=== PATIENT | female | born 1995 | race Caucasian/White ===

== ENCOUNTER 2017-03-26 00:59 | Emergency (ER) | payer BC ==
[~2017-03-26] VITALS: Ht 154.9 cm; Wt 65.9 kg
[~2017-03-26 00:59] MED LIST: BIRTH CONTROL; CIPRO 500MG TA500 MG PO; FLAGYL500 MG PO; ZOFRAN ODT4 MG PO
[2017-03-26 01:47] LABS: BASO # 0.1 (0.0-0.2); BASO % 0.7 % (0.0-2.0); EOS # 0.4 (0.0-0.7); EOS % 4.3 % (0-4.0); GRAN # 3.7 (1.4-6.5); GRAN % 38.2 % (42.2-75.2); LYMPH # 4.8 (1.2-3.4); LYMPH % 49.7 % (20.0-51.0); MEAN CELL VOLUME 79 fl (80.0-100.0); MEAN CORPUSCULAR HEMOGLOBIN 28 pg (27.0-31.0); MEAN CORPUSCULAR HGB CONC 35 g/dl (33.0-37.0); MEAN PLATELET VOLUME 11.1 fl (7.4-10.4); MONO # 0.7 (0.1-0.6); MONO % 6.8 % (1.7-9.3); PLATELET COUNT 280 K/mm3 (130-400); RED BLOOD COUNT 5.04 M/mm3 (4.10-5.30); REDCELL DISTRIBUTION WIDTH-CV 12.3 % (11.5-14.5)
[2017-03-26 01:56] LABS: ALBUMIN 4.8 gm/dL (3.5-5.0); BILIRUBIN,TOTAL 0.5 mg/dL (0.0-1.0); CALCIUM 9.7 mg/dL (8.4-10.2); CREATININE, serum 0.76 mg/dL (0.52-1.25); POTASSIUM 3.6 mmol/L (3.4-5.0); TOTAL PROTEIN 8.6 gm/dL (6.4-8.2)
[2017-03-26 02:13] LABS: COLLECTION METHOD CLEAN CATCH
[2017-03-26 02:19] LABS: PH 5 (5-8); SQUAMOUS EPITHELIAL 0-2 /hpf; URINE APPEARANCE Clear; URINE BACTERIA None Seen /hpf; URINE BILIRUBIN Negative (NEGATIVE); URINE BLOOD Negative (NEGATIVE); URINE COLOR Yellow; URINE GLUCOSE Negative (NEGATIVE); URINE KETONE Negative (NEGATIVE); URINE LEUKOCYTE ESTERASE Negative (NEGATIVE); URINE NITRATE Negative (NEGATIVE); URINE PROTEIN(semi-quant) Negative (NEGATIVE); URINE RBC 0-2 /hpf; URINE UROBILINOGEN Negative (NEGATIVE)
[2017-03-26 04:35] VITALS: BP 119/78; PULSE 70; TEMP 98.2
== END 2017-03-26 04:46 | disposition home or self-care (01) ==
LOC: COL.ER 00:59
PROVIDERS: Emergency Medicine
DX: K59.00 Constipation, unspecified (principal)
CPT/HCPCS: J2270; J2405; J7030; Q9967

== ENCOUNTER 2022-11-05 12:37 | Inpatient (IN) | payer BC, MEDICAID ==
[~2022-11-05] VITALS: Ht 157.5 cm; Wt 102.3 kg
[2022-11-09] VITALS (17 sets, daily range): BP systolic 102–126; BP diastolic 42–84; PULSE 66–88; TEMP 98–98.3
--- NOTE | 2022-11-09 09:15 | NUR ---
PT ARRIVES AMBULATORY TO UNIT FOR SCHEDULED REPEAT CSECTION. REPORTS VAGINAL DISCHARGE/FLUID SINCE 1600 YESTERDAY, NONE TODAY. AND INTERMITTENT CONTRACTIONS, SHE IS ABLE TO BREATHE AND TALK THROUGH. REPORTS POSITIVE MOVEMENT. STATES SHE WAS TRAN[facility] [place] [facility] DUE TO A "UTERINE ABRASION/SCAR TISSUE THAT WILL NEED REPAIR DURING THIS CSECTION." NOTIFIED, NO NEW ORDERS AT THIS TIME. NO NEED FOR AMNITEST OR SVE PER , WE WILL SHORTLY BE WALKING PT BACK FOR DELIVERY. GBS-. CATEGORY 1 EFM TRACING UPON ARRIVAL.
[2022-11-09] MEDS ORDERED: PRENATAL (09:21)
[2022-11-09 09:45] LABS: HEMATOCRIT 39.7 % (37.0-47.0); HEMOGLOBIN 13.6 g/dl (12.5-16.0); MEAN CELL VOLUME 81 fl (80.0-100.0); MEAN CORPUSCULAR HEMOGLOBIN 28 pg (27-31); MEAN CORPUSCULAR HGB CONC 34 g/dl (33.0-37.0); MEAN PLATELET VOLUME 10.3 fl (7.4-10.4); PLATELET COUNT 216 K/mm3 (130-400); RED BLOOD COUNT 4.92 M/mm3 (4.10-5.30); REDCELL DISTRIBUTION WIDTH-CV 12.9 % (11.5-14.5)
[2022-11-09 10:07] LABS: LYMPHOCYTE 24 % (20.0-51.0); NEUTROPHILS 70 % (42.0-75.2)
[2022-11-09 10:09] LABS: PLATELET ESTIMATE NORMAL (NORMAL); TOXIC GRANULATION PRESENT
[2022-11-09] MEDS ORDERED: PERCOCET 325 MG1 TA2 PO (10:11)
[2022-11-09] MEDS ORDERED: MOTRIN 800800 MG/TAB PO (10:11)
--- NOTE | 2022-11-09 10:56 | NUR ---
1022: PT TO OR FOR SCHEDULED REPEAT SECTION. DAXA MARIE AT BEDSIDE FOR SPINAL ANESTHESIA. PT TOLERATING PROCEDURE WELL. PRESENT AND SUPPORTIVE. 1053: AROM, CLEAR FLUID PER 1054: VACUUM PLACED ON INFANTS HEAD PER . 35CM PRESSURE APPLIED. TRACTION PERFORMED, POP OFF X1. NO FURTHER VACUUM USE. AND HAVING DIFFICULTY DELIVERING . 1056: CSECTION DELIVERY OF VIABLE MALE INFANT AT THIS TIME PER . NO CRY NOTED AT DELIVERY, BLUE IN COLOR AND TAKEN TO WARMER. CARE OF ASSUMED BY DIANNE JACOBSEN AND ASSISTANCE REQUESTED AND OFFERED BY CANDYRN AND DIANNE CAMPBRIDGE EXPERT NURSE. AT INFANTS BEDSIDE WELL DAXA KEY SHORTLY FOLLOWING DELIVERY. SEE NOTE. 1100: KYRA REQUESTED AND APPLIED PER TO HELP ASSIST WITH BLEEDING. 1200: TOTAL QBL IN OR: 590CC. PT TO PACU IN STABLE CONDITION. ALERT AND ORIENTED. BREATHING ON ROOM AIR. VITAL SIGNS STABLE. GARCIA DRAINING CLEAR YELLOW URINE. LOCHIA SCANT, FUNDUS FIRM AT UMBILICUS WITH MASSAGE.
--- NOTE | 2022-11-09 12:30 | NUR ---
PT TO NURSERY VIA BED TO VISIT INFANT. VITAL SIGNS STABLE. THIS NURSE REMAINS AT BEDSIDE MONITORING LOCHIA AND PP VITALS.
--- NOTE | 2022-11-10 01:15 | NUR ---
THIS NURSE ASSISTED MOTHER OOB AND TO THE BATHROOM. STEADY GAIT NOTED, PATIENT'S ASSISTED. MOTHER SAT DOWN ON TOILET, GARCIA CATHETER REMOVED AND EMPTIED. MICHELE CARE PROVIDED. NEW GOWN PLACED ON MOTHER. MOTHER AMBULATED BACK TO BED STEADILY WITH ASSISTANCE OF 1. MOTHER BACK IN BED, DIRTY ABDOMINAL BINDER REMOVED, NEW BINDER PLACED ON MOTHER. MOTHER RESTING.
[2022-11-10 04:00] VITALS: BP 145/72; PULSE 87; TEMP 97.8
--- NOTE | 2022-11-10 04:57 | NUR ---
PT RATED PAIN 8/10 WITH REPORTS OF "AFTER PAINS" AND "CRAMPING" WITH . PT ALSO REQUESTED THAT SHE HAVE A VITAMIN IN THE MORNING. DR. LUO NOTIFIED AND PLACED THE FOLLOWING VERBAL PHONE READBACK ORDERS: 1. ADMINISTER 7.5 MG OF ROXICODONE PO ONCE NOW 2. INCREASE THE ROXICODONE 5MG Q4HR PRN DOSAGE 15 MG Q4HR PRN. (PT MAY HAVE TWO 7.5 MG TABLETS QHRS PRN) 3. ADD VITAMIN 1 TABLET DAILY FOR 0900 BEGINNING 11/10. ORDERS PLACED PER PROVIDER.
[2022-11-10 08:30] VITALS: BP 113/60; PULSE 84; TEMP 98
--- NOTE | 2022-11-10 09:43 | NUR ---
Initial visit; Parents thanked [employer] for offering congratulations and God's blessings for the of their son. [employer] thanked family for choosing [place].
[2022-11-10 11:35] VITALS: BP 120/67; PULSE 91; TEMP 97.4
--- NOTE | 2022-11-10 13:31 | NUR ---
1230 THIS AUTOGRAPHER ASSUMES CARE OF PATIENT FROM JAQCUE PATEL RN.
[2022-11-10 16:06] VITALS: BP 138/88; PULSE 100; TEMP 98.2
[2022-11-10 21:13] VITALS: BP 108/61; PULSE 86; TEMP 97.9
[2022-11-11 08:44] VITALS: BP 118/62; PULSE 103; TEMP 97.5
[2022-11-11 16:39] VITALS: BP 123/78; PULSE 88; TEMP 97.3
[2022-11-11 21:30] VITALS: BP 119/61; PULSE 73; TEMP 97.9
[2022-11-12 08:00] VITALS: BP 121/72; PULSE 85; TEMP 97.6
[2022-11-12] MEDS ORDERED: MOTRIN 800800 MG/TAB PO (08:56)
[2022-11-12] MEDS ORDERED: PERCOCET 325 MG1 TA2 PO (08:56)
--- NOTE | 2022-11-12 10:26 | NUR ---
DISCHARGE EDUCATION COMPLETED, DISCUSSED FOLLOW UP APPOINTMENTS, AND HEALTH HISTORY GIVEN. QUESTIONS INVITED AND ANSWERED.
== END 2022-11-12 10:45 | disposition home or self-care (01) | DRG 788 ==
LOC: OB 12:37
PROVIDERS: ADMIT Obstetrics & Gynecology
PROC: 10D00Z1 Extraction of Products of Conception, Low, Open Approach (ICD-10-PCS; principal; 2022-11-09)
DX: O34.211 Maternal care for low transverse scar from previous cesarean delivery (principal); O48.0 Post-term pregnancy; Z3A.40 40 weeks gestation of pregnancy; Z37.0 Single live birth
CPT/HCPCS: J0690; J1100; J1885; J2405; J2590; J7120